=== PATIENT | female | born 1995 | race Caucasian/White ===

== ENCOUNTER 2019-01-09 06:07 | Inpatient (IN) | payer OTHER ==
[~2019-01-09] VITALS: Ht 157.5 cm; Wt 80.9 kg
[~2019-01-09 06:07] MED LIST: CEPH-368 PO; OXYC-302 PO; PNV1TABL4 PO
[2019-01-09] MEDS: D5%-LACTATED RINGERS 1,000 ML IV SCH ×3 (06:08→22:08)
[2019-01-09] MEDS ORDERED: OXYTOCIN 30U/ 0.9% NaCL 500ML 500 ML IV ONE (06:08)
[2019-01-09] MEDS ORDERED: FENTANYL PF 100 MCG/2ML IV PRN (06:30)
[2019-01-09] MEDS ORDERED: ONDANSETRON 2MG/ML, 2ML IVPush PRN (06:30)
[2019-01-09] MEDS ORDERED: TERBUTALINE 1 MG/ML, 1ML IVPush PRN (06:30)
[2019-01-09] MEDS ORDERED: CALCIUM CARBONATE 500 MG TAB.CHEW PO PRN (06:30)
[2019-01-09] MEDS ORDERED: OXYTOCIN 30U/ 0.9% NaCL 500ML 500 ML IV PRN (06:42)
[2019-01-09 06:43] VITALS: BP 109/64
[2019-01-09 06:51] LABS: BASOPHILS # (AUTO) 0.04 x10^3/uL (0-0.1); BASOPHILS % (AUTO) 0 % (0-1); EOSINOPHILS # (AUTO) 0.15 x10^3/uL (0-0.4); EOSINOPHILS % (AUTO) 1 % (1-7); LYMPHOCYTES # (AUTO) 2.99 x10^3/uL (1-3.4); LYMPHOCYTES % (AUTO) 25 % (22-44); MD NO; MEAN CORPUSCULAR HEMOGLOBIN 29.7 pg (27.0-34.8); MEAN CORPUSCULAR HGB CONC 32.7 g/dL (32.4-35.8); MEAN CORPUSCULAR VOLUME 90.8 fL (80-100); MEAN PLATELET VOLUME 8.4 fL (7.4-10.4); MONOCYTES # (AUTO) 1.11 x10^3/uL (0.2-0.8); MONOCYTES % (AUTO) 9 % (2-9); NEUTROPHILS # (AUTO) 7.66 x10^3/uL (1.8-6.8); NEUTROPHILS % (AUTO) 64 % (42-75); PLATELET COUNT 279 x10^3/uL (130-400); RED BLOOD COUNT 4.08 x10^6/uL (3.82-5.3); RED CELL DISTRIBUTION WIDTH 15.6 % (9.6-15.2)
[2019-01-09] MEDS ORDERED: NEWBORN KIT ONE (07:11)
[2019-01-09] MEDS ORDERED: OXYTOCIN 30U/ 0.9% NaCL 500ML 500 ML ONE ×2 (07:11→23:04)
[2019-01-09] MEDS ORDERED: LIDOCAINE 1%, 20ML ONE (07:11)
[2019-01-09] MEDS ORDERED: MISOPROSTOL 200 MCG TABLET ONE (07:11)
[2019-01-09] MEDS: LACTATED RINGERS 1,000 ML IV SCH ×5 (07:24→23:06)
[2019-01-09] MEDS ORDERED: FENTANYL/BUPIV./NS/PF 250 ML EPIDCONT SCH (12:05)
[2019-01-09] MEDS ORDERED: FENTANYL PF 500 MCG, BUPIVACAINE/PF 0.5%, 30ML 62.5 ML in SODIUM CHLORIDE 0.9% 177.5 ML EPIDCONT SCH (12:30)
[2019-01-09] MEDS ORDERED: EPHEDRINE 50 MG/ML, 1ML IVPush PRN (12:30)
[2019-01-09] MEDS ORDERED: LACTATED RINGERS 1,000 ML IVBOLUS PRN (12:30)
[2019-01-09] MEDS ORDERED: BUPIVACAINE 0.25% ONE ×2 (12:39→16:01)
[2019-01-09] MEDS ORDERED: FENTANYL PF 100 MCG/2ML ONE ×2 (13:55→15:12)
[2019-01-09] MEDS: FENTANYL PF 100 MCG/2ML IVPush PRN ×2 (14:02→15:17)
[2019-01-09] MEDS ORDERED: ONDANSETRON 2MG/ML, 2ML ONE (20:49)
[2019-01-09] MEDS ORDERED: OXYcodone/APAP 5/325MG TABLET PO PRN (21:30)
[2019-01-09] MEDS ORDERED: CARBOPROST TROMETHAMINE 250 MCG/ML, 1ML IM PRN (21:30)
[2019-01-09] MEDS ORDERED: ACETAMINOPHEN 325 MG TABLET PO PRN (21:30)
[2019-01-09] MEDS ORDERED: MEASLES,MUMPS&RUBELLA VACC/PF 0.5 ML SQ PRN (21:30)
[2019-01-09] MEDS ORDERED: RHOGAM FROM BLOOD BANK 1 NOTE EA IM/IV ONE (21:30)
[2019-01-09] MEDS ORDERED: DIPH,PERTUSS(ACELL),TET VAC/PF NC IM-VACC PRN (21:30)
[2019-01-09] MEDS ORDERED: METHYLERGONOVINE 0.2 MG/ML IM PRN (21:30)
[2019-01-09] MEDS ORDERED: MISOPROSTOL 200 MCG TABLET PR PRN (21:30)
[2019-01-09] MEDS ORDERED: IBUPROFEN 600 MG TABLET ONE (23:04)
[2019-01-09] MEDS: IBUPROFEN 600 MG TABLET PO PRN (23:06)
[2019-01-09] MEDS: OXYTOCIN 30U/ 0.9% NaCL 500ML 500 ML IV SCH (23:07)
[2019-01-10 00:30] VITALS: BP 111/68
[2019-01-10] MEDS: OXYcodone/APAP 5/325MG TABLET PO PRN ×3 (02:18→16:27)
[2019-01-10] MEDS: LACTATED RINGERS 1,000 ML IV SCH ×2 (04:05→19:59)
[2019-01-10 04:30] VITALS: BP 98/61
[2019-01-10] MEDS: IBUPROFEN 600 MG TABLET PO PRN ×3 (05:09→22:23)
[2019-01-10 06:06] LABS: MEAN CORPUSCULAR HEMOGLOBIN 30.8 pg (27.0-34.8); MEAN CORPUSCULAR HGB CONC 33.5 g/dL (32.4-35.8); MEAN CORPUSCULAR VOLUME 91.8 fL (80-100); MEAN PLATELET VOLUME 8.6 fL (7.4-10.4); PLATELET COUNT 256 x10^3/uL (130-400); RED BLOOD COUNT 3.53 x10^6/uL (3.82-5.3); RED CELL DISTRIBUTION WIDTH 15.7 % (9.6-15.2)
[2019-01-10 06:24] LABS: BASOPHILS # (AUTO) 0.08 x10^3/uL (0-0.1); BASOPHILS % (AUTO) 0 % (0-1); EOSINOPHILS # (AUTO) 0.07 x10^3/uL (0-0.4); EOSINOPHILS % (AUTO) 0 % (1-7); LYMPHOCYTES # (AUTO) 3.02 x10^3/uL (1-3.4); LYMPHOCYTES % (AUTO) 15 % (22-44); MD SCAN; MONOCYTES # (AUTO) 1.86 x10^3/uL (0.2-0.8); MONOCYTES % (AUTO) 9 % (2-9); NEUTROPHILS # (AUTO) 14.92 x10^3/uL (1.8-6.8); NEUTROPHILS % (AUTO) 75 % (42-75)
[2019-01-10 07:15] VITALS: BP 96/63
[2019-01-10] MEDS: DOCUSATE 100 MG CAPSULE PO PRN (07:34)
[2019-01-10] MEDS: PRENATAL VIT/IRON/FA 1 EACH TABLET PO SCH (07:34)
[2019-01-10 14:00] VITALS: BP 103/68
[2019-01-10] MEDS: OXYTOCIN 30U/ 0.9% NaCL 500ML 500 ML IV SCH ×2 (17:26→19:59)
[2019-01-10 19:50] VITALS: BP 101/68
[2019-01-11 02:50] VITALS: BP 100/61
[2019-01-11] MEDS: OXYTOCIN 30U/ 0.9% NaCL 500ML 500 ML IV SCH ×2 (03:26→12:16)
[2019-01-11] MEDS: LACTATED RINGERS 1,000 ML IV SCH ×2 (04:39→12:05)
[2019-01-11] MEDS: IBUPROFEN 600 MG TABLET PO PRN ×2 (05:34→12:46)
[2019-01-11 09:15] VITALS: BP 108/75
[2019-01-11] MEDS: PRENATAL VIT/IRON/FA 1 EACH TABLET PO SCH (09:38)
[2019-01-11] MEDS: DOCUSATE 100 MG CAPSULE PO PRN (09:38)
== END 2019-01-11 15:45 | disposition home or self-care (01) | DRG 806 ==
LOC: LDIP 06:07 → 2NW 01-10 00:15
PROVIDERS: ADMIT Obstetrics & Gynecology Maternal & Fetal Medicine; ATTEND Obstetrics & Gynecology Maternal & Fetal Medicine
PROC: 10E0XZZ Delivery of Products of Conception, External Approach (ICD-10-PCS; principal; 2019-01-09)
PROC: 3E0R3BZ Introduction of Anesthetic Agent into Spinal Canal, Percutaneous Approach (ICD-10-PCS; 2019-01-09)
PROC: 00HU33Z Insertion of Infusion Device into Spinal Canal, Percutaneous Approach (ICD-10-PCS; 2019-01-09)
PROC: 10907ZC Drainage of Amniotic Fluid, Therapeutic from Products of Conception, Via Natural or Artificial Opening (ICD-10-PCS; 2019-01-09)
DX: O24.429 Gestational diabetes mellitus in childbirth, unspecified control (principal); O71.4 Obstetric high vaginal laceration alone; Z37.0 Single live birth; Z3A.39 39 weeks gestation of pregnancy
CPT/HCPCS: 36415; S0020; 82962; 85025; 86850; 86900; G0378; J2405; J3010; J2590; J7050; J7120

== ENCOUNTER 2019-01-15 00:32 | Inpatient (IN) | payer OTHER ==
[~2019-01-15] VITALS: Ht 157.5 cm; Wt 78.8 kg
[2019-01-15] MEDS ORDERED: HYDROcodone/APAP 5/325 TABLET PO ONE (01:00)
--- NOTE | 2019-01-15 01:08 | NUR ---
PT TO US. UA SENT TO LAB.
[2019-01-15] MEDS ORDERED: HYDROcodone/APAP 5/325 TABLET ONE (01:19)
[2019-01-15 01:23] LABS: CULTURE INDICATED? YES; MICROSCOPIC INDICATED
--- NOTE | 2019-01-15 01:25 | NUR ---
PT BACK TO ROOM. PT MEDICATED FOR PAIN. VSS. LAB AT BEDSIDE. CALL LIGHT IN REACH
[2019-01-15 01:48] LABS: BASOPHILS # (AUTO) 0.08 x10^3/uL (0-0.1); BASOPHILS % (AUTO) 1 % (0-1); EOSINOPHILS # (AUTO) 0.19 x10^3/uL (0-0.4); EOSINOPHILS % (AUTO) 1 % (1-7); LYMPHOCYTES # (AUTO) 2.32 x10^3/uL (1-3.4); LYMPHOCYTES % (AUTO) 15 % (22-44); MD NO; MEAN CORPUSCULAR HEMOGLOBIN 30.6 pg (27.0-34.8); MEAN CORPUSCULAR HGB CONC 32.9 g/dL (32.4-35.8); MEAN CORPUSCULAR VOLUME 92.8 fL (80-100); MEAN PLATELET VOLUME 7.7 fL (7.4-10.4); MONOCYTES # (AUTO) 1.08 x10^3/uL (0.2-0.8); MONOCYTES % (AUTO) 7 % (2-9); NEUTROPHILS # (AUTO) 11.38 x10^3/uL (1.8-6.8); NEUTROPHILS % (AUTO) 76 % (42-75); PLATELET COUNT 416 x10^3/uL (130-400); RED BLOOD COUNT 3.85 x10^6/uL (3.82-5.3); RED CELL DISTRIBUTION WIDTH 16.1 % (9.6-15.2)
[2019-01-15 01:54] LABS: ALANINE AMINOTRANSFERASE 45 U/L (12-78); ALBUMIN 2.7 g/dL (3.4-5.0); ANION GAP 9 mmol/L (5-15); CALCIUM 8.3 mg/dL (8.5-10.1); CHLORIDE 111 mmol/L (98-107); CREATININE 0.66 mg/dL (0.55-1.02)
[2019-01-15] MEDS ORDERED: CEFTRIAXONE PMX 1GM/50ML 50 ML ONE (01:56)
[2019-01-15 01:57] LABS: ALKALINE PHOSPHATASE 128 U/L (45-117); BILIRUBIN,TOTAL 0.3 mg/dL (0.2-1.0); TOTAL PROTEIN 6.6 g/dL (6.4-8.2)
[2019-01-15] MEDS ORDERED: SODIUM CHLORIDE 0.9% 1,000ML IVBOLUS ONE ×2 (02:00→03:00)
[2019-01-15] MEDS ORDERED: CEFTRIAXONE PMX 1GM/50ML 50 ML IVPB ONE (02:00)
[2019-01-15] MEDS ORDERED: CEFTRIAXONE 1,000 MG IM ONE (02:00)
--- NOTE | 2019-01-15 02:22 | NUR ---
PIV PLACED. FLUIDS AND ABX INFUSING. VSS. FAMILY AT BEDSIDE. CALL LIGHT IN REACH
[2019-01-15] MEDS ORDERED: ACETAMINOPHEN 325 MG TABLET PO PRN (03:00)
[2019-01-15 03:50] VITALS: BP 114/77
[2019-01-15] MEDS: SODIUM CHLORIDE 0.9% 1,000 ML IV SCH ×3 (03:55→23:40)
[2019-01-15 08:10] VITALS: BP 110/73
[2019-01-15 14:22] VITALS: BP 105/72
[2019-01-15] MEDS: IBUPROFEN 600 MG TABLET PO PRN (19:21)
[2019-01-15 19:54] VITALS: BP 112/74
[2019-01-16 00:30] VITALS: BP 113/78
[2019-01-16 06:11] LABS: MEAN CORPUSCULAR HEMOGLOBIN 29.9 pg (27.0-34.8); MEAN CORPUSCULAR HGB CONC 32.6 g/dL (32.4-35.8); MEAN CORPUSCULAR VOLUME 91.9 fL (80-100); MEAN PLATELET VOLUME 7.1 fL (7.4-10.4); PLATELET COUNT 389 x10^3/uL (130-400); RED BLOOD COUNT 3.67 x10^6/uL (3.82-5.3)
[2019-01-16 06:21] LABS: ANION GAP 8 mmol/L (5-15); CALCIUM 8.2 mg/dL (8.5-10.1); CHLORIDE 113 mmol/L (98-107); CREATININE 0.58 mg/dL (0.55-1.02)
[2019-01-16 06:41] LABS: BASOPHILS # (AUTO) 0.08 x10^3/uL (0-0.1); BASOPHILS % (AUTO) 1 % (0-1); EOSINOPHILS # (AUTO) 0.24 x10^3/uL (0-0.4); EOSINOPHILS % (AUTO) 2 % (1-7); LYMPHOCYTES # (AUTO) 3.95 x10^3/uL (1-3.4); LYMPHOCYTES % (AUTO) 40 % (22-44); MD NO; MONOCYTES # (AUTO) 1.03 x10^3/uL (0.2-0.8); MONOCYTES % (AUTO) 11 % (2-9); NEUTROPHILS # (AUTO) 4.56 x10^3/uL (1.8-6.8); NEUTROPHILS % (AUTO) 46 % (42-75)
[2019-01-16] MEDS: SODIUM CHLORIDE 0.9% 1,000 ML IV SCH ×2 (08:32→18:57)
[2019-01-16] MEDS: CEFTRIAXONE PMX 1GM/50ML 50 ML IV SCH (08:32)
[2019-01-16 11:23] VITALS: BP 105/70
[2019-01-16 15:16] VITALS: BP 108/73
[2019-01-16 19:56] VITALS: BP 112/76
[2019-01-16] MEDS: IBUPROFEN 600 MG TABLET PO PRN (22:34)
[2019-01-17 00:20] VITALS: BP 116/79
[2019-01-17] MEDS: SODIUM CHLORIDE 0.9% 1,000 ML IV SCH ×2 (04:46→13:11)
[2019-01-17 06:33] VITALS: BP 138/90
[2019-01-17] MEDS: CEFTRIAXONE PMX 1GM/50ML 50 ML IV SCH (09:48)
[2019-01-17] MEDS ORDERED: CIPR500T87 PO (12:23)
[2019-01-17 12:52] VITALS: BP 102/69
== END 2019-01-17 13:25 | disposition home or self-care (01) | DRG 776 ==
LOC: ED 02:10 → EDIP 02:50 → 3NE 03:40 → DCLOUNGE 01-17 13:20
PROVIDERS: ADMIT Internal Medicine; ATTEND Internal Medicine
DX: O85 Puerperal sepsis (principal); E43 Unspecified severe protein-calorie malnutrition; R65.21 Severe sepsis with septic shock; O86.21 Infection of kidney following delivery; B96.29 Other Escherichia coli [E. coli] as the cause of diseases classified elsewhere; M54.5 Low back pain; O25.3 Malnutrition in the puerperium; Z83.3 Family history of diabetes mellitus
CPT/HCPCS: 36415; 76770; 76856; 80048; 80053; 81001; 83605; 85025; 87040; 87077; 87086; 87186; 96365; 99291; G0378; J0696; J7030

== ENCOUNTER 2020-03-03 04:16 | Emergency (ER) | payer OTHER ==
[~2020-03-03] VITALS: Ht 157.5 cm; Wt 72.4 kg
[~2020-03-03 04:16] MED LIST changes: +CIPR500T87 PO
--- NOTE | 2020-03-03 05:22 | NUR ---
ct pending BETA RESULT.
[2020-03-03 05:45] LABS: BASOPHILS # (AUTO) 0.05 x10^3/uL (0-0.1); BASOPHILS % (AUTO) 1 % (0-1); EOSINOPHILS # (AUTO) 0.16 x10^3/uL (0-0.4); EOSINOPHILS % (AUTO) 2 % (1-7); LYMPHOCYTES # (AUTO) 3.11 x10^3/uL (1-3.4); LYMPHOCYTES % (AUTO) 31 % (22-44); MD NO; MEAN CORPUSCULAR HEMOGLOBIN 30.7 pg (27.0-34.8); MEAN CORPUSCULAR HGB CONC 33.6 g/dL (32.4-35.8); MEAN CORPUSCULAR VOLUME 91.5 fL (80-100); MEAN PLATELET VOLUME 7.9 fL (7.4-10.4); MONOCYTES # (AUTO) 0.77 x10^3/uL (0.2-0.8); MONOCYTES % (AUTO) 8 % (2-9); NEUTROPHILS # (AUTO) 5.95 x10^3/uL (1.8-6.8); NEUTROPHILS % (AUTO) 59 % (42-75); PLATELET COUNT 300 x10^3/uL (130-400); RED BLOOD COUNT 4.96 x10^6/uL (3.82-5.3); RED CELL DISTRIBUTION WIDTH 12.9 % (9.6-15.2)
[2020-03-03 05:53] LABS: ALANINE AMINOTRANSFERASE 28 U/L (12-78); ALBUMIN 3.8 g/dL (3.4-5.0); ANION GAP 5 mmol/L (5-15); CALCIUM 8.5 mg/dL (8.5-10.1); CHLORIDE 108 mmol/L (98-107)
[2020-03-03 05:58] LABS: ALKALINE PHOSPHATASE 109 U/L (45-117); BILIRUBIN,TOTAL 0.5 mg/dL (0.2-1.0)
--- NOTE | 2020-03-03 06:00 | NUR ---
PT UPDATED ON POC, CALL LIGHT WITHIN REACH, FAMILY AT BS FOR SUPPORT. MONITORING IN PLACE, CALL LIGHT WITHIN REACH.
[2020-03-03] MEDS ORDERED: OMNIPAQUE 350 MG/ML, 75ML BOTTLE ONE (06:30)
--- NOTE | 2020-03-03 06:50 | NUR ---
REPORT TO SPR[facility]
--- NOTE | 2020-03-03 06:54 | NUR ---
Took report from Dona reid, assume care at this time.
[2020-03-03 08:20] VITALS: BP 124/74
== END 2020-03-03 08:25 | disposition home or self-care (01) ==
LOC: ED 05:17
DX: G81.94 Hemiplegia, unspecified affecting left nondominant side (principal); R20.0 Anesthesia of skin
CPT/HCPCS: 36415; 70450; 70496; 70498; 80053; 84703; 85025; 93005; 99285; Q9967